=== PATIENT | male | born 2000 | race Hispanic/Latino ===

== ENCOUNTER 2019-07-30 19:03 | Emergency (ER) | payer OTHER, SELFPAY ==
--- NOTE | 2019-07-30 | DI.RAD.S_ITS ---
PROCEDURE: XR FINGER RT MIN 2V INDICATIONS: laceration to index finger near PIP joint, 2 nd digit TECHNIQUE: AP hand, 2 views of the right second finger(s) acquired. COMPARISON: None. FINDINGS: Bones: No fractures or dislocations. No suspicious bony lesions. Soft tissues: A soft tissue laceration is present at the second PIP joint. No unexpected radiopaque foreign bodies. IMPRESSION: Second digit soft tissue laceration without underlying bony abnormality or unexpected radiopaque foreign bodies. Dictated by: Myrna Ochoa M.D. on 07/30/2019 at 20:14 Approved by: Myrna Ochoa M.D. on 07/30/2019 at 20:14
[2019-07-30 19:10] VITALS: BP 149/90; PULSE 120; RESP 14; TEMP 37.1; O2SAT 100; BMI 21.4
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
[2019-07-30] MEDS: LIDO 1%/SOD BICARB 8.4% (10ML) 10 ML SYRINGE INJ (20:23)
[2019-07-30] MEDS: BACITRACIN OINT 0.9 GM PCKT 1 APPLIC TOP (20:23)
[2019-07-30] MEDS: TET,DIPH,PERTUSS(ACELL),VAC/PF 0.5 ML SYRINGE IM (20:24)
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
[2019-07-30 21:40] VITALS: BP 144/84; PULSE 92; RESP 14; O2SAT 99
== END 2019-07-30 21:42 | disposition home or self-care (01) ==
PROVIDERS: Emergency Provider Nurse Practitioner Family
DX: S61.210A Laceration without foreign body of right index finger without damage to nail, initial encounter (principal); X99.1XXA Assault by knife, initial encounter; Z23 Encounter for immunization
CPT/HCPCS: 12001; 73140; 90471; 99283; 99284; 90715